=== PATIENT | male | born 1960 | race Caucasian/White ===

== ENCOUNTER 2022-03-04 12:50 | Outpatient (CLI) | payer BC | END 2022-03-04 12:51 | disposition home or self-care (01) | LOC: CSHWCC 12:50 | PROVIDERS: ATTEND Nurse Practitioner Family | DX: L89.152 Pressure ulcer of sacral region, stage 2 (principal) | CPT/HCPCS: 11042; 99212; G0463 ==

== ENCOUNTER 2022-03-19 09:49 | Outpatient (CLI) | payer BC | END 2022-03-19 09:50 | disposition home or self-care (01) | LOC: CSHWCC 09:49 | PROVIDERS: ATTEND Nurse Practitioner Family | DX: L89.152 Pressure ulcer of sacral region, stage 2 (principal) | CPT/HCPCS: 99212; G0463 ==

== ENCOUNTER 2022-03-31 08:46 | Outpatient (CLI) | payer BC | END 2022-03-31 08:47 | disposition home or self-care (01) | LOC: CSHWCC 08:46 | PROVIDERS: ATTEND Nurse Practitioner Family | DX: L89.152 Pressure ulcer of sacral region, stage 2 (principal) | CPT/HCPCS: 99212; G0463 ==

== ENCOUNTER 2022-11-05 14:46 | Outpatient (CLI) | payer BC | END 2022-11-05 14:47 | disposition home or self-care (01) | LOC: CSHWCC 14:46 | PROVIDERS: ATTEND Nurse Practitioner Family | DX: L89.152 Pressure ulcer of sacral region, stage 2 (principal) ==